=== PATIENT | female | born 1995 | race Caucasian/White ===

== ENCOUNTER 2023-07-23 09:07 | Outpatient (CLI) | payer OTHER, SELFPAY ==
--- NOTE | 2023-07-23 09:15 | US_ITS ---
Final Report Patient: ABDIRIZAK BUENO Facility:?[facility] Patient ID:?[id number] Site Patient ID:?[id number]. Site :?1995 Study:?US OB Pelvis TA/TV-07/23/2023 10:30:14 AM Ordering Physician:FREDERICK Final Report: INDICATION: First trimester scan, establish dates. COMPARISON: None. TECHNIQUE: Real-time cruz-scale imaging of the pelvis was performed. FINDINGS: Sonographic imaging demonstrates a single living intrauterine gestation. The embryo demonstrates a regular cardiac rate measuring 173 beats per minute. The embryo`s crown-rump length measurement of 2.2 cm corresponds to a gestational age of 9 weeks 0 days with a sonographic due date of 02/25/2024. There is a normal-appearing yolk sac. There are no gross abnormalities noted within the embryo at this early state of development. The gestational sac has a normal appearance. There is no evidence of a perigestational hemorrhage. The amount of fluid within the sac appears appropriate for gestational age. The cervix is closed. The myometrium appears normal. The ovaries are of normal size. Corpus luteal cyst right ovary. There are no suspicious fluid collections noted in the cul-de-sac. IMPRESSION: Normal first trimester OB ultrasound exam. Gestational age calculated at 9 weeks 0 days with a sonographic due date of 02/25/2024. Dictated by Jayce Lord MD @ 07/23/2023 10:57:45 AM (Electronic Signature)
== END 2023-07-23 09:08 | disposition home or self-care (01) ==
LOC: US 09:08
PROVIDERS: Visit Provider Advanced Practice Midwife
DX: Z34.91 Encounter for supervision of normal pregnancy, unspecified, first trimester (principal); Z3A.09 9 weeks gestation of pregnancy
CPT/HCPCS: 76817; 86703; 86706; 86803; 86850; 86900; 86901; 87086; 87340

== ENCOUNTER 2023-07-23 10:15 | Outpatient (CLI) | payer OTHER, SELFPAY | END 2023-07-23 10:16 | disposition home or self-care (01) | PROVIDERS: Visit Provider Advanced Practice Midwife | DX: Z34.91 Encounter for supervision of normal pregnancy, unspecified, first trimester (principal) | CPT/HCPCS: 86592; 86703; 86704; 86706; 86762; 86787; 86803; 86850; 86900; 86901; 87086; 87340; 87491; 87591 ==

== ENCOUNTER 2023-09-18 14:00 | Outpatient (CLI) | payer OTHER, SELFPAY | END 2023-09-18 14:01 | disposition home or self-care (01) | LOC: NFLDREF 09-19 06:29 | PROVIDERS: Visit Provider Advanced Practice Midwife | DX: Z34.93 Encounter for supervision of normal pregnancy, unspecified, third trimester (principal) | CPT/HCPCS: 87491; 87591 ==

== ENCOUNTER 2023-10-03 08:06 | Outpatient (CLI) | payer OTHER, SELFPAY ==
--- NOTE | 2023-10-03 08:15 | US_ITS ---
Patient: ABDIRIZAK BUENO Facility:?[facility] Patient ID:?[id number] Site Patient ID:?[id number]. Site :?1995 Study:?US-OB Pelvis anatomy-10/03/2023 9:20:33 AM Ordering Physician:Devi August Final Report: HISTORY: anatomic survey. COMPARISON: Early OB ultrasound from 07/23/2023 TECHNIQUE: Ultrasound examination of the is performed with transabdominal technique. FINDINGS: A single intrauterine gestation is seen in variable presentation with regular cardiac activity at 147 beats per minute. The placenta is fundal and to the left and is free of the cervical os. The placental grade is 1 and the amniotic fluid volume is normal. Single deepest vertical pocket: Normal at 3.5 cm. The cervix is nondilated and is normal in length at 5.0 centimeters. BPD: 4.6 cm 20 weeks 0 days HC: 16.5 cm 19 weeks 1 day AC: 15.2 cm 20 weeks 3 days FL: 3.1 cm 19 weeks 5 days The estimated age by ultrasound is 20 weeks 0 days, with an estimated date of delivery of 02/20/2024. This correlates well with the clinical age of 19 weeks 1 day and the previous ultrasound. The ultrasound ratios are normal. The estimated weight of 320 grams is at the 89th percentile based on the clinical dates. The anatomic survey demonstrates normal appearing intracranial structures with a normal septum pellucidum and normal cerebellum. The nuchal thickness is normal at 5 mm, and the lateral ventricle is normal in diameter at 6 mm. The upper lip, 4 chamber heart, left and right ventricular outflow tracts, diaphragm, stomach, cord insertion site, 3-vessel cord, kidneys, and bladder are normal in appearance. The spine is not well visualized due to position. IMPRESSION: 1. Single intrauterine gestation in variable presentation with regular cardiac activity. 2. Estimated gestational age is 20 weeks 0 days. 3. There has been appropriate interval growth. 4. The estimated weight of 320 grams is at the 89th percentile based on the clinical dates. 5. The spine is not well visualized due to position. Dictated by Qasim Llanos MD @ 10/04/2023 10:48:27 AM Signed by:?Qasim Llanos MD @10/04/2023 10:48:27 AM (Electronic Signature)
== END 2023-10-03 08:07 | disposition home or self-care (01) ==
LOC: US 08:06
PROVIDERS: Visit Provider Physician Assistant
DX: Z34.92 Encounter for supervision of normal pregnancy, unspecified, second trimester (principal); Z3A.20 20 weeks gestation of pregnancy
CPT/HCPCS: 76805

== ENCOUNTER 2023-10-17 16:00 | Outpatient (CLI) | payer OTHER, SELFPAY ==
--- NOTE | 2023-10-17 16:00 | CRLHL7_ITS ---
For Patients: As a result of the Century Cures Act, medical imaging exams and procedure reports are released immediately into your electronic medical record. You may view this report before your referring provider. If you have questions, please contact your health care provider. INDICATION: F/U on suboptimal views of spine COMPARISON: 10.03.23 TECHNIQUE: Real time cruz scale imaging of the fetus was performed. FINDINGS: Sonographic imaging demonstrates a single living intrauterine gestation. Fetus demonstrates a regular cardiac rate of 149 beats per minute. Fetus has a vertex position. The placenta lies posterior. Amniotic fluid volume appears normal. Single deepest vertical pocket: 4.7 cm. The cervical, thoracic and lumbar spine are well visualized and appear normal. IMPRESSION: Normal spine. Dictated by Jayce Lord MD @ 10/18/2023 10:29:06 AM (Electronically Signed)
== END 2023-10-17 16:01 | disposition home or self-care (01) ==
PROVIDERS: Visit Provider Obstetrics & Gynecology
DX: O35.FXX0 Maternal care for other (suspected) fetal abnormality and damage, fetal musculoskeletal anomalies of trunk, not applicable or unspecified (principal)
CPT/HCPCS: 76816

== ENCOUNTER 2023-11-26 13:30 | Outpatient (CLI) | payer OTHER, SELFPAY | END 2023-11-26 13:31 | disposition home or self-care (01) | LOC: NFLDREF 11-28 06:10 | PROVIDERS: Visit Provider Advanced Practice Midwife | DX: Z34.02 Encounter for supervision of normal first pregnancy, second trimester (principal) | CPT/HCPCS: 86592 ==